=== PATIENT | male | born 1955 | race Caucasian/White ===

== ENCOUNTER → 2020-12-25 | Outpatient (CLI) | payer OTHER | END | disposition home or self-care (01) | LOC: RAH 10:30 | PROVIDERS: ATTEND Nurse Practitioner Adult Health | DX: Z13.6 Encounter for screening for cardiovascular disorders (principal) | CPT/HCPCS: 75571 ==

== ENCOUNTER → 2022-12-26 | Outpatient (CLI) | payer MEDICARE, OTHER | END | disposition home or self-care (01) | LOC: RAH 10:47 | PROVIDERS: ATTEND Nurse Practitioner Adult Health | DX: H53.123 Transient visual loss, bilateral (principal) | CPT/HCPCS: 93880 ==

== ENCOUNTER → 2023-02-16 | Outpatient (CLI) | payer MEDICARE, OTHER | END | disposition home or self-care (01) | LOC: RAH 09:11 | PROVIDERS: ATTEND Nurse Practitioner Adult Health | DX: M47.812 Spondylosis without myelopathy or radiculopathy, cervical region (principal); M43.8X2 Other specified deforming dorsopathies, cervical region; M48.02 Spinal stenosis, cervical region; M50.222 Other cervical disc displacement at C5-C6 level; R93.7 Abnormal findings on diagnostic imaging of other parts of musculoskeletal system | CPT/HCPCS: 72141 ==

== ENCOUNTER → 2024-11-10 | Outpatient (CLI) | payer OTHER ==
--- NOTE | 2024-11-11 15:57 | HMCIMG ---
EXAM: CT Cardiac calcium scoring. CLINICAL HISTORY: Screening. TECHNIQUE: Thin collimated axial CT cardiac images were obtained. A CT scan is done according to ALARA (As Low As Reasonably Achievable). CONTRAST: None. COMPARISON: CT Calcium scoring. 12/25/2020. FINDINGS: Calcium Score: VESSEL Number of lesions Volume mm3 Equi. Mass/mg Calcium score LM 0 0 - 0 LAD 0 0 - 0 LCX 0 0 - 0 RCA 1 37.0 - 48.6 Total 1 37.0 - 48.6 IMPRESSION: The calcium score is 48.6. An interval increase in the calcium score as compared to prior. This corresponds to the 39th percentile. Redemonstrated are calcified right hilar and subcarinal lymph nodes. /Merrill
== END | disposition home or self-care (01) ==
LOC: RAH 14:21
PROVIDERS: ATTEND Nurse Practitioner Adult Health
DX: Z13.6 Encounter for screening for cardiovascular disorders (principal)
CPT/HCPCS: 75571

== ENCOUNTER → 2025-05-03 | Outpatient (CLI) | payer MEDICARE ==
--- NOTE | 2025-05-03 22:22 | HMCIMG ---
STUDY MR left lower extremity without IV contrast, knee CLINICAL HISTORY Knee pain TECHNIQUE Multisequence, multiplanar magnetic resonance images of the left knee were obtained without intravenous contrast COMPARISON None provided FINDINGS Ligaments The anterior cruciate, posterior cruciate, medial collateral, and lateral collateral ligaments are intact without tear. The popliteus tendon and iliotibial band are preserved. Tendons and extensor mechanism Quadriceps and patellar tendons are intact without tendinosis or tear. The medial and lateral patellar retinacula are unremarkable. Menisci There is a horizontal cleavage tear involving the body and posterior horn of the medial meniscus, extending to the inferior articular surface, without displaced meniscal fragment. The lateral meniscus is normal in morphology and signal without tear. Cartilage and joint spaces There is mild osteoarthritic change of the knee, predominantly involving the medial tibiofemoral compartment, with mild joint space narrowing, surface fibrillation, and small marginal osteophytes. Lateral compartment and patellofemoral articular cartilage are relatively preserved. Joint alignment is maintained with a small physiologic amount of joint fluid and no sizable loose body. Bones and marrow No acute fracture or aggressive osseous lesion is identified. Bone marrow signal is otherwise within normal limits without focal contusion or osteonecrosis. Muscles and soft tissues Visualized musculature demonstrates normal bulk and signal. No Asher cyst or significant periarticular soft tissue collection is seen. IMPRESSION * Horizontal cleavage tear of the medial meniscus involving the body and posterior horn, concordant with the history of knee pain. * Mild osteoarthritis of the left knee, predominantly affecting the medial tibiofemoral compartment, with relative preservation of the lateral and patellofemoral compartments. * Intact cruciate and collateral ligaments and preserved extensor mechanism without additional internal derangement. /T[place]a
--- NOTE | 2025-05-03 22:23 | HMCIMG ---
STUDY MR pelvis without intravenous contrast CLINICAL HISTORY Hip pain TECHNIQUE Multisequence, multiplanar magnetic resonance images of the pelvis were obtained without intravenous contrast COMPARISON None provided FINDINGS Bones and hip joints There is moderate to severe degenerative osteoarthritis of the left hip joint with diffuse thinning and near-complete loss of the articular cartilage along the superolateral weightbearing surface. Subchondral bone marrow edema and subchondral cyst formation are present in the superolateral femoral head and corresponding acetabular roof. A 1.8 x 1.4 cm cystic lesion is noted along the left anterior femoral headneck junction, likely related to degenerative change and femoroacetabular impingement. 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 No acute fracture, osteonecrosis, or aggressive osseous lesion is identified. Tendons and periarticular soft tissues There is tendinosis of the left gluteus minimus tendon at its insertion on the greater trochanter with minimal adjacent insertional fluid and no high-grade or full-thickness tendon tear. The visualized gluteus medius, hamstring, iliopsoas, and adductor tendons demonstrate no high-grade tear. No sizable trochanteric or iliopsoas bursal fluid collection is seen. Bursae and joint effusion Small left hip joint effusion is present in association with the degenerative change. No large bursal collections are identified about the left hip. Contralateral hip and pelvis The right hip joint shows no significant degenerative change, fracture, or avascular necrosis on the provided field of view. The visualized sacroiliac joints and pubic symphysis are unremarkable. Intrapelvic structures Limited evaluation of bowel is grossly unremarkable without acute process. The urinary bladder and visualized reproductive organs are unremarkable. No pelvic lymphadenopathy or free fluid is identified. IMPRESSION * Moderate to severe osteoarthritis of the left hip joint with superolateral weightbearing cartilage loss, subchondral bone marrow edema, and subchondral cyst formation in the femoral head and acetabulum, concordant with the history of hip pain. 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 * Left gluteus minimus tendinosis with minimal adjacent insertional fluid, without high-grade or full-thickness tendon tear. * No acute fracture, osteonecrosis, or aggressive osseous lesion of the pelvis or hips identified on this examination. /Victor
== END | disposition home or self-care (01) ==
LOC: RAH 07:54
PROVIDERS: ATTEND Nurse Practitioner Adult Health
DX: S83.242A Other tear of medial meniscus, current injury, left knee, initial encounter (principal); M16.12 Unilateral primary osteoarthritis, left hip; M25.852 Other specified joint disorders, left hip; R60.0 Localized edema; M25.452 Effusion, left hip; M17.12 Unilateral primary osteoarthritis, left knee; M25.551 Pain in right hip; M25.561 Pain in right knee; X58.XXXA Exposure to other specified factors, initial encounter; Y93.89 Activity, other specified; Y92.89 Other specified places as the place of occurrence of the external cause; Y99.8 Other external cause status
CPT/HCPCS: 73721